=== PATIENT | male | born 1975 | race American Indian/Alaskan Native ===

== ENCOUNTER 2020-01-04 14:01 | Emergency (ER) | payer SELFPAY ==
[2020-01-04 14:49] VITALS: BP 182/95
[2020-01-04] MEDS ORDERED: ACETAMINOPHEN 325 MG TAB PO ONE (14:49)
--- NOTE | 2020-01-04 14:49 | Event Note ---
ED Screening Note ED Screening Note: lac ring finger tip dm tdap utd This initial assessment/diagnostic orders/clinical plan/treatment(s) is/are subject to change based on patients health status, clinical progression and re- assessment by fellow clinical providers in the ED. Further treatment and workup at subsequent clinical providers discretion. Patient/guardian urged not to elope from the ED as their condition may be serious if not clinically assessed and managed. Initial orders include: wound care
[2020-01-04] MEDS ORDERED: SODIUM CHLORIDE 0.9% IRR 500 ML BOTTLE IR ONE (15:00)
[2020-01-04] MEDS ORDERED: IBUPROFEN 600 MG TAB PO ONE (19:49)
[2020-01-04] MEDS ORDERED: LIDOCAINE-MPF (1%) 10 MG/1 ML VIAL 5 ML INFILTRATI ONE (19:50)
--- NOTE | 2020-01-04 21:34 | Emergency Department Report ---
Upper Extremity - [facility] Chief Complaint: Extremity Injury, Upper Stated Complaint: FINGER LAC Time Seen by Provider: 01/04/20 14:49 Upper Extremity: Right Ring Finger (distal right ring finger laceration, and partial nail avulsion) Occurred When: Today Mechanism: Other (cut distal right ring finger accidentally) Severity: severe Symptoms: Yes Pain with Movement, Yes Laceration or Abrasion (distal right ring finger laceration), No Deformity, No Limited Range of Movement, No Numbness, No Weakness, No Swelling, No Bruising/Ecchymosis Other History: Patient is a 44-year-old -[place] male with a history of [id number] diabetes who presents to the ED with complaint of acute onset painful bleeding distal right ring finger laceration with partial nail avulsion after a sharp object protruding from a trash can that he was taking out of the house accidentally punctured his right index finger about 4 hours ago. Patient states that he is up-to-date with all his tetanus vaccination. Patient denies numbness and tingling or weakness of right ring finger, dizziness, nausea, vomiting, headache, syncope, fall or lightheadedness. ED Review of Systems ROS: Stated complaint: FINGER LAC Other details as noted in HPI Constitutional: denies: chills, fever Eyes: denies: eye pain, eye discharge, vision change ENT: denies: ear pain, throat pain Respiratory: denies: cough, shortness of breath, wheezing Cardiovascular: denies: chest pain, palpitations Endocrine: no symptoms reported Gastrointestinal: denies: abdominal pain, nausea, diarrhea Genitourinary: denies: urgency, dysuria Musculoskeletal: other (painful right ring finger due to a bleeding distal right ring finger laceration and partion nail avulsion). denies: back pain, joint swelling, arthralgia Skin: other (laceration of distal right ring finger). denies: rash, lesions Neurological: denies: headache, weakness, paresthesias Psychiatric: denies: anxiety, depression Hematological/Lymphatic: denies: easy bleeding, easy bruising ED Past Medical Hx - Past Medical History Hx Diabetes: Yes - Social History Smoking Status: Never Smoker Substance Use Type: None - Medications Home Medications: Home Medications Medication Instructions Recorded Confirmed Last Taken Type glipiZIDE [Glucotrol] 5 mg PO BID #60 tablet 02/08/14 Unknown Rx Lisinopril/Hydrochlorothiazide 1 tab PO QDAY #30 tablet 06/22/14 Unknown Rx [Zestoretic 20-12.5 mg] metFORMIN [Glucophage] 500 mg PO BID #60 tablet 06/22/14 Unknown Rx Ibuprofen [Motrin] 800 mg PO Q8HR PRN #24 tablet 01/04/20 Unknown Rx Sulfamethoxazole/Trimethoprim 1 each PO BID #20 tablet 01/04/20 Unknown Rx [Bactrim DS TAB] Upper Extremity Exam - Exam General: Vital signs noted. No distress. Alert and acting appropriately. Head and Torso: No HEENT Abnormality, No Neck Tenderness, No Chest/Lungs Abnormality, No Abdominal Tenderness, No Back Tenderness Shoulder Exam: Yes Normal Range of Motion in Shoulder, No Shoulder Tenderness, No Clavicle Tenderness, No Shoulder Deformity, No AC Joint Tenderness Arm Exam: No Arm/Humerus Tenderness, No Arm Deformity Elbow: Yes Normal Range of Motion in Elbow, No Elbow Tenderness, No Elbow Deformity Forearm: No Forearm Tenderness, No Forearm Deformity, No Pain with Pronation, No Pain with Supination Wrist: Yes Normal ROM in Wrist, No Wrist Tenderness, No Wrist Deformity, No Snuffbox Tenderness, No Pain with Axial Thumb Compression Hand: Yes Digit Tenderness (distal right ring finger laceration, partial nail avulsion), Yes Normal ROM in Digit(s), No Hand Tenderness, No Hand Deformity, No Digit(s) Deformity, No Tendon Dysfunction CMS Exam: Yes Broken Skin (distal right ring finger laceration, partial nail avulsion), Yes Normal Distal Pulses, Yes Normal Capillary Refill, Yes Normal Distal Sensation ED Course Vital Signs 01/04/20 01/04/20 14:33 21:01 Temperature 98.4 F Pulse Rate 88 Respiratory 18 16 Rate Blood Pressure 182/95 O2 Sat by Pulse 100 Oximetry - Laceration /Wound Repair Right Distal Dorsal Finger Wound Location: upper extremity (distal dorsal right ring finger laceration with partial nail avulsion) Wound Length (cm): 3 Wound's Depth, Shape: superficial, irregular, nail-avulsed Wound Explored: contaminated Irrigated w/ Saline (ccs): 50 Betadine Prep?: Yes Anesthesia: 1% Lidocaine Volume Anesthetic (ccs): 5 Wound Debrided: extensive Wound Repaired With: sutures Suture Size/Type: 4:0, proline Number of Sutures: 6 Layer Closure?: No Sterile Dressing Applied?: Yes Progress: Patient tolerated the procedure well. Patient was discharged home on oral antibiotics and pain medication and advised follow-up with his primary care physician in 7 to 10 days for reevaluation or return to the ED immediately if symptoms get worse. ED Medical Decision Making - Medical Decision Making This is a 44-year-old -[place] male with a history of tcj-dhkczhn-iieqaomur diabetes who presents to the ED with complaint of acute onset painful bleeding distal right ring finger laceration with partial nail avulsion after a sharp object protruding from a trash can that he was taking out of the house accidentally punctured his right index finger about 4 hours ago. Patient states that he is up-to-date with all his tetanus vaccination. In the ED, patient is alert and oriented x3 and is not in any distress. Patient was treated for pain in the ED and the distal right ring finger laceration was cleaned thoroughly and sutured per protocol. Patient tolerated the procedure well. Patient was discharged home on pain medication and prophylactic antibiotics and advised to follow-up with his primary care physician in 7 to 10 days for reevaluation. Patient was also advised to return to the ED immediately if symptoms get worse. Patient was otherwise advised return to the ED or to his primary care physician in 12 to 14 days for suture removal. - Differential Diagnosis Puncture wound; laceration, nail avulsion; finger injury Critical care attestation.: If time is entered above; I have spent that time in minutes in the direct care of this critically ill patient, excluding procedure time. ED Disposition Clinical Impression: Laceration of right ring finger with damage to nail w/o foreign body Qualifiers: Encounter type: initial encounter Qualified Code(s): S61.314A - Laceration without foreign body of right ring finger with damage to nail, initial encounter Disposition: DC-01 TO HOME OR SELFCARE Is pt being admited?: No Does the pt Need Aspirin: No Condition: Stable Instructions: Laceration (ED), Toenail/Fingernail Removal (ED) Additional Instructions: Take medications with food, drink plenty of fluids and follow up with your primary care physician in 7 to 10 days for reevaluation. Return to the ED immediately if symptoms get worse. Otherwise return to the ED or to your primary care physician in 12 to 14 days for suture removal. Prescriptions: Sulfamethoxazole/Trimethoprim [Bactrim DS TAB] 1 each PO BID #20 tablet Ibuprofen [Motrin] 800 mg PO Q8HR PRN #24 tablet PRN Reason: Pain , Severe (7-10) Referrals: [facility] [Provider Group] - 7-10 days Time of Disposition: 21:44 Print Language: LAO
== END 2020-01-04 22:05 | disposition home or self-care (01) ==
LOC: ED 14:01
DX: S61.314A Laceration without foreign body of right ring finger with damage to nail, initial encounter (principal); W26.8XXA Contact with other sharp object(s), not elsewhere classified, initial encounter; Y93.89 Activity, other specified; Y92.89 Other specified places as the place of occurrence of the external cause; Y99.8 Other external cause status
CPT/HCPCS: 99282